=== PATIENT | female | born 1995 | race American Indian/Alaskan Native ===

== ENCOUNTER 2019-01-24 10:20 | Outpatient (CLI) | payer BC ==
--- NOTE | 2019-01-24 13:44 | XRay Report ---
LEFT HUMERUS 2 VIEWS INDICATION / CLINICAL INFORMATION: LEFT ARM FOR LOCATION OF NEXPLANON IMPLANT. COMPARISON: None available. FINDINGS: No significant skeletal abnormality. Signer Name: Jonathan Hazel MD FACMarie Signed: 01/24/2019 1:37 PM Workstation Name: [id number]
--- NOTE | 2019-01-24 15:42 | Ultrasound Report ---
US extremity nonvascular LT INDICATION / CLINICAL INFORMATION: LEFT ARM FOR LOCATION OF NEXPLANON IMPLANT. COMPARISON: None available. Technique: Grayscale ultrasound was performed of the left upper arm. FINDINGS: Linear echogenicity is seen in the subcutaneous tissue of the left upper arm measuring up to 3.7 cm i n length compatible with Nexplanon implant. The implant is located 7 mm deep to the skin surface. IMPRESSION: 1. Nexplanon implant as detailed above. Signer Name: Orquidea Oglesby MD Signed: 01/24/2019 3:38 PM Workstation Name: [id number]
== END 2019-01-24 10:21 | disposition home or self-care (01) ==
LOC: MRI 10:20
PROVIDERS: ATTEND Obstetrics & Gynecology
DX: Z30.46 Encounter for surveillance of implantable subdermal contraceptive (principal)

== ENCOUNTER 2019-02-13 07:27 | Day surgery (SDC) | payer BC, OTHER ==
[2019-02-13 07:51] VITALS: BP 116/76
[2019-02-13] MEDS ORDERED: XYLOCAINE 1% 20 mL INFILTRATI ONE ×2 (08:05→09:05)
[2019-02-13] MEDS ORDERED: MARCAINE 0.5% INFILTRATI ONE ×3 (08:05→09:05)
[2019-02-13] MEDS ORDERED: XYLOCAINE 1% 20 mL ONE (08:06)
--- NOTE | 2019-02-13 09:54 | Procedure Note ---
Date of procedure: 02/13/19 Pre-op diagnosis: foreign body left arm Post-op diagnosis: same Procedure: removal of foreign body left arm Findings: Time out performed. L upper arm prepped and draped in sterile fashion. The foreign object ( control implant) was palpated. Local anesthetic was infiltrated into the skin at the intended incision site. A 2 cm incision was made using a 15 blade. Dissection was carried down through the skin and subcutaneous tissue using electrocautery. Object was localized in the subcutaneous tissue and grasped with an Allis. It was dissected free from the surrounding tissue and the capsule using blunt dissection with hemostat as well as electrocautery. Once the entire object was dissected free, it was removed intact. This was passed off the table as a specimen to be sent to pathology for identification. The wound was then irrigated and hemostasis carefully achieved. The deep dermal layer was closed with interrupted 3-0 Vicryl sutures. Skin incision was closed with 4-0 Monocryl subcuticular running stitch and skin glue. All sponge, instrument, sharp counts were correct 2. The patient tolerated the procedure well and was discharged in stable condition. Anesthesia: local Surgeon: KARIN ESPINOSA Estimated blood loss: minimal Pathology: list (foreign body left arm) Specimen disposition: to lab Condition: stable Disposition: other (Home)
== END 2019-02-13 09:35 | disposition home or self-care (01) ==
LOC: OR 07:27
PROVIDERS: ATTEND Surgery
DX: Z45.89 Encounter for adjustment and management of other implanted devices (principal); Z18.9 Retained foreign body fragments, unspecified material; Z79.899 Other long term (current) drug therapy
CPT/HCPCS: 88300; 88302